=== PATIENT | female | born 1965 | race Caucasian/White ===

== ENCOUNTER 2017-05-14 19:25 | Emergency (ER) | payer OTHER ==
[~2017-05-14] VITALS: Ht 180.3 cm; Wt 295.0 kg
[~2017-05-14 19:25] MED LIST: ALBUTEROL S2.5 MG/.5 IN; ENALAPRIL10 MG OR; ENALAPRIL10 MG PO; FERROUS SULF325 M2 PO; MEDDOSEPAK OR; MOTRIN800 MG OR; NITROGLYCER0.4 M1 SL; PENICILLN VK500 MG OR; TRAMADOL HCL50 MG PO; TRAZODONE150 MG OR; VICODIN1 TAB OR
[2017-05-14] MEDS ORDERED: ALBUTEROL SUL0.083 % IN (19:54)
[2017-05-14] MEDS ORDERED: NEURONTIN100 MG PO (19:54)
[2017-05-14] MEDS ORDERED: METOPROL TAR25 MG PO (19:55)
[2017-05-14] MEDS ORDERED: ALPRAZOLAM PO (19:55)
[2017-05-14] MEDS ORDERED: DITROPAN PO (19:56)
[2017-05-14] MEDS ORDERED: PREDNISONE1 MG PO (19:56)
[2017-05-14] MEDS ORDERED: ULTRAM50 M1 PO (23:04)
[2017-05-15 01:45] VITALS: BP 128/55
== END 2017-05-15 01:45 | disposition home or self-care (01) | DRG 554 ==
LOC: ED 19:25
DX: M17.12 Unilateral primary osteoarthritis, left knee (principal); M25.562 Pain in left knee

== ENCOUNTER 2017-05-26 18:47 | Emergency (ER) | payer OTHER ==
[~2017-05-26] VITALS: Ht 180.3 cm; Wt 318.0 kg
[~2017-05-26 18:47] MED LIST changes: +ALBUTEROL SUL0.083 % IN; +ALPRAZOLAM PO; +DITROPAN PO; +METOPROL TAR25 MG PO; +NEURONTIN100 MG PO; +PREDNISONE1 MG PO; +ULTRAM50 M1 PO
[2017-05-26] MEDS ORDERED: PERCOCET 5/325M1 TAB PO (21:55)
[2017-05-26 23:30] VITALS: BP 123/69
== END 2017-05-26 23:30 | disposition home or self-care (01) | DRG 605 ==
LOC: ED 18:47
DX: S80.02XA Contusion of left knee, initial encounter (principal); E66.01 Morbid (severe) obesity due to excess calories; M17.12 Unilateral primary osteoarthritis, left knee; M25.562 Pain in left knee; W06.XXXA Fall from bed, initial encounter; Y93.9 Activity, unspecified; Y92.003 Bedroom of unspecified non-institutional (private) residence as the place of occurrence of the external cause

== ENCOUNTER 2017-05-31 05:08 | Emergency (ER) | payer OTHER ==
[~2017-05-31] VITALS: Ht 180.3 cm; Wt 350.0 kg
[~2017-05-31 05:08] MED LIST changes: +PERCOCET 5/325M1 TAB PO
[2017-05-31 08:21] LABS: HEMATOCRIT 41.2 % (37.0-47.0); HEMOGLOBIN 12.1 g/dl (12.0-16.0); IMMATURE GRANULOCYTES 0.2 % (0.0-1.0); MEAN CELL VOLUME 93.4 fL CALC (80.0-100.0); MEAN CORPUSCULAR HGB 27.4 pG CALC (26.0-32.0); MEAN CORPUSCULAR HGB CONC 29.4 g/L CALC (32.0-36.0); NEUT# 3.02 thou/uL (2.00-7.15); RED BLOOD COUNT 4.41 mill/uL (4.20-5.60); RED CELL DISTRI WIDTH 15.2 % (11.5-15.5)
[2017-05-31 08:30] LABS: URINE BLOOD DIPSTICK NEGATIVE (NEGATIVE); URINE COLOR YELLOW; URINE GLUCOSE - DIPSTICK NEGATIVE (NEGATIVE); URINE KETONE TRACE mg/dL (NEGATIVE); URINE LEUK ESTERASE NEGATIVE (NEGATIVE); URINE NITRITE - DIPSTICK NEGATIVE (Negative); URINE SPECIFIC GRAVITY >=1.030
[2017-05-31 08:32] LABS: URINE BILIRUBIN - DIPSTICK MODERATE (NEGATIVE); URINE CLARITY CLEAR; URINE PROTEIN - DIPSTICK Trace mg/dL (NEG-TRACE)
[2017-05-31 08:34] LABS: ALBUMIN 3.3 g/dL (3.2-5.0); ALKALINE PHOSPHATASE 64 u/l (38-126); ANION GAP 11 (6-22 (CALC)); BILIRUBIN, TOTAL 0.9 mg/dL (0.0-1.4); BUN 7 mg/dL (7-17); BUN/CREATININE RATIO 14 (12-20 (CALC)); CALCIUM 8.7 mg/dL (8.4-10.2); CHLORIDE 95 mmol/l (95-108); CREATININE 0.5 mg/dL (0.5-1.0); GFR > 60 ML/MIN (>=60 (CALC)); GFR FOR AFR.AMER. > 60 ML/MIN (>=60 (CALC)); GLUCOSE 99 mg/dL (65-105); SGOT/AST 21 u/l (14-36); SGPT/ALT 33 u/l (9-52); SODIUM 142 mmol/l (137-146); TOTAL PROTEIN 6.5 g/dL (6.3-8.2)
[2017-05-31 08:43] LABS: CARBON DIOXIDE 40 mmol/l (22-30)
[2017-05-31 14:56] VITALS: BP 127/60
== END 2017-05-31 16:55 | disposition home or self-care (01) | DRG 948 ==
LOC: ED 05:08
PROVIDERS: Emergency Medicine
PROC: 0T9B70Z Drainage of Bladder with Drainage Device, Via Natural or Artificial Opening (ICD-10-PCS; principal; 2017-05-31)
DX: R53.1 Weakness (principal); E66.01 Morbid (severe) obesity due to excess calories; M32.9 Systemic lupus erythematosus, unspecified; Z99.81 Dependence on supplemental oxygen; I10 Essential (primary) hypertension; F40.00 Agoraphobia, unspecified; J44.9 Chronic obstructive pulmonary disease, unspecified; R06.00 Dyspnea, unspecified; Z74.01 Bed confinement status; Z91.81 History of falling